=== PATIENT | female | born 1985 | race African-American/Black ===

== ENCOUNTER 2024-09-19 14:11 | Emergency (ER) | payer MEDICAID ==
[~2024-09-19] VITALS: Ht 167.6 cm; Wt 73.0 kg
[2024-09-19 14:16] VITALS: BP 143/93; PULSE 69; RESP 18; TEMP 37; O2SAT 99
== END 2024-09-19 20:44 | disposition left against medical advice (07) ==
LOC: ER 14:11
DX: R42 Dizziness and giddiness (principal); Z53.21 Procedure and treatment not carried out due to patient leaving prior to being seen by health care provider
CPT/HCPCS: 93005; 99283